=== PATIENT | female | born 1980 | race Two or more races ===

== ENCOUNTER 2019-09-26 20:00 | Emergency (ER) | payer SELFPAY ==
[~2019-09-26] VITALS: Ht 152.4 cm; Wt 49.1 kg
[2019-09-26] MEDS ORDERED: KETOROLAC TROMETHAMINE 60 MG/2 ML VIAL IM ONE (21:30)
[2019-09-26 22:05] VITALS: BP 111/63
== END 2019-09-26 22:28 | disposition home or self-care (01) ==
LOC: EMS 20:01
DX: S86.892A Other injury of other muscle(s) and tendon(s) at lower leg level, left leg, initial encounter (principal); M25.561 Pain in right knee; M25.562 Pain in left knee; F17.210 Nicotine dependence, cigarettes, uncomplicated; Z91.010 Allergy to peanuts; X58.XXXA Exposure to other specified factors, initial encounter; Y93.41 Activity, dancing; Y92.89 Other specified places as the place of occurrence of the external cause; Y99.8 Other external cause status
CPT/HCPCS: 96372; 99283; J1885